=== PATIENT | male | born 1950 | race African-American/Black ===

== ENCOUNTER 2021-08-18 04:13 | Day surgery (SDC) | payer OTHER ==
[2021-08-18] MEDS ORDERED: BUPIVACAINE HCL/PF 0.5% (5MG/ML) 10 ML VIAL ONE ×2 (10:01→12:31)
[2021-08-18] MEDS ORDERED: PROPOFOL 20 ML ONE ×2 (11:27)
[2021-08-18] MEDS ORDERED: MIDAZOLAM HCL 2 MG/2 ML SINGLE DOSE VIAL ONE (11:27)
[2021-08-18] MEDS ORDERED: SUCCINYLCHOLINE CHLORIDE 200 MG/10 ML SYRINGE ONE (11:28)
[2021-08-18] MEDS ORDERED: ceFAZolin SODIUM 1 GM VIAL IVPB ONE (11:55)
[2021-08-18] MEDS ORDERED: LIDOCAINE HCL 2% (50ML VIAL) NR ONE (12:03)
[2021-08-18] MEDS ORDERED: LIDOCAINE HCL 2% (20ML MULTI-DOSE VIAL) ONE (12:32)
[2021-08-18] MEDS ORDERED: BUPIVACAINE HCL/PF 0.5% (5MG/ML) 10 ML VIAL IJ ONE (12:59)
[2021-08-18 17:32] VITALS: TEMP 97.2
[2021-08-18 17:33] VITALS: BP 140/72; PULSE 75
== END 2021-08-18 14:10 | disposition home or self-care (01) ==
LOC: JASU-SURG 04:13
PROVIDERS: ATTEND Student in an Organized Health Care Education/Training Program
PROC: 0SRP0JZ Replacement of Right Toe Phalangeal Joint with Synthetic Substitute, Open Approach (ICD-10-PCS; principal; 2021-08-18 11:30)
DX: M20.41 Other hammer toe(s) (acquired), right foot (principal)
CPT/HCPCS: 73630-TC-RT-FY; 88304-TC; 88311-TC